=== PATIENT | female | born 2000 | race Caucasian/White ===

== ENCOUNTER 2020-10-30 19:01 | Emergency (ER) | payer OTHER ==
[2020-10-30] MEDS ORDERED: PREDNISONE 20 M20 MG PO (20:15)
[2020-10-30] MEDS ORDERED: BENADRYL 50MG C50 MG PO (20:15)
[2020-10-30] MEDS ORDERED: PEPCID20 MG PO (20:15)
== END 2020-10-30 20:30 | disposition home or self-care (01) ==
LOC: ER1 19:01
DX: T78.1XXA Other adverse food reactions, not elsewhere classified, initial encounter (principal); R22.0 Localized swelling, mass and lump, head
CPT/HCPCS: 96365; 96375; 99283; J2930

== ENCOUNTER 2021-10-04 15:47 | Emergency (ER) | payer OTHER ==
[~2021-10-04 15:47] MED LIST: BENADRYL 50MG C50 MG PO; PEPCID20 MG PO; PREDNISONE 20 M20 MG PO; REGLAN10 MG PO
[2021-10-04 19:08] LABS: RED BLOOD COUNT 4.39 M/UL (4.00-5.10); WHITE BLOOD COUNT 8.8 K/UL (4.5-11.0)
[2021-10-04 19:23] LABS: BUN/CREATININE RATIO 12 (0-10)
[2021-10-04] MEDS ORDERED: PHENERGAN 25 MG25 M1 PO (22:20)
[2021-10-04] MEDS ORDERED: OMNICEF 300 MG300 MG PO (22:20)
== END 2021-10-04 22:58 | disposition home or self-care (01) ==
LOC: ER1 15:47
PROVIDERS: Family Medicine
DX: O21.0 Mild hyperemesis gravidarum (principal); O23.41 Unspecified infection of urinary tract in pregnancy, first trimester; Z3A.09 9 weeks gestation of pregnancy
CPT/HCPCS: 80053; 81001; 85025; 96372; 99284; J2550; J7030

== ENCOUNTER 2021-11-07 10:36 | Emergency (ER) | payer OTHER ==
[~2021-11-07 10:36] MED LIST changes: +OMNICEF 300 MG300 MG PO; +PHENERGAN 25 MG25 M1 PO
[2021-11-07 14:52] LABS: HEMOGLOBIN 11.5 gm/dl (12.3-15.3); RED BLOOD COUNT 4.26 M/UL (4.00-5.10); WHITE BLOOD COUNT 9.4 K/UL (4.5-11.0)
[2021-11-07 15:04] LABS: BUN/CREATININE RATIO 12 (0-10)
== END 2021-11-07 17:33 | disposition home or self-care (01) ==
LOC: ER1 10:36
PROVIDERS: Emergency Medicine
DX: O9A.212 Injury, poisoning and certain other consequences of external causes complicating pregnancy, second trimester (principal); T78.1XXA Other adverse food reactions, not elsewhere classified, initial encounter; O99.891 Other specified diseases and conditions complicating pregnancy; R07.9 Chest pain, unspecified; Z3A.14 14 weeks gestation of pregnancy
CPT/HCPCS: 80053; 81001; 82550; 82553; 84484; 85025; 93005; 96374; 96375; 99285; J1200; J2550; J2930

== ENCOUNTER 2021-12-12 12:18 | Emergency (ER) | payer OTHER ==
[2021-12-12 15:28] LABS: HEMOGLOBIN 11.9 gm/dl (12.3-15.3); RED BLOOD COUNT 4.34 M/UL (4.00-5.10); WHITE BLOOD COUNT 11.7 K/UL (4.5-11.0)
[2021-12-12 15:55] LABS: BUN/CREATININE RATIO 11 (0-10)
[2021-12-12] MEDS ORDERED: CEPHALEXIN500 M1 PO (16:35)
[2021-12-12] MEDS ORDERED: PROTONIX40 MG PO (16:35)
== END 2021-12-12 17:07 | disposition home or self-care (01) ==
LOC: ER1 12:18
PROVIDERS: Physician Assistant
DX: O99.891 Other specified diseases and conditions complicating pregnancy (principal); R10.2 Pelvic and perineal pain; R82.71 Bacteriuria; O99.612 Diseases of the digestive system complicating pregnancy, second trimester; K21.9 Gastro-esophageal reflux disease without esophagitis; Z3A.19 19 weeks gestation of pregnancy
CPT/HCPCS: 80053; 81001; 83690; 85025; 87086; 99284

== ENCOUNTER 2022-03-15 19:20 | Outpatient (CLI) | payer OTHER ==
[~2022-03-15 19:20] MED LIST changes: +CEPHALEXIN500 M1 PO; +PROTONIX40 MG PO
== END 2022-03-15 20:16 | disposition home or self-care (01) ==
LOC: GENOP 19:20
DX: O36.8930 Maternal care for other specified fetal problems, third trimester, not applicable or unspecified (principal); Z3A.32 32 weeks gestation of pregnancy
CPT/HCPCS: 59025

== ENCOUNTER 2022-03-25 11:32 | Outpatient (CLI) | payer OTHER | END 2022-03-25 14:59 | disposition home or self-care (01) | LOC: GENOP 11:32 | DX: O26.813 Pregnancy related exhaustion and fatigue, third trimester (principal); O99.891 Other specified diseases and conditions complicating pregnancy; R06.02 Shortness of breath; R63.0 Anorexia; R04.0 Epistaxis; Z3A.34 34 weeks gestation of pregnancy; Z20.822 Contact with and (suspected) exposure to COVID-19 | CPT/HCPCS: 81001; G0463; U0002 ==